=== PATIENT | female | born 1960 | race Caucasian/White ===

== ENCOUNTER 2021-12-08 11:09 | Inpatient (IN) | payer OTHER, SELFPAY ==
[2021-12-08] VITALS (13 sets, daily range): BP systolic 111–183; BP diastolic 59–103; PULSE 70–113; RESP 12–18; TEMP 36.1–37.2; O2SAT 96–99; BMI 54.8; BMI 24.9
--- NOTE | 2021-12-08 | DI.RAD.S_ITS ---
PROCEDURE: XR CHEST FOR PICC 1V INDICATIONS: Picc placement COMPARISON: None. FINDINGS: PICC was placed by the intravenous therapy team from the right side. Fluoroscopic spot film demonstrates the tip of PICC projecting to the area of mid SVC. IMPRESSION: Tip of PICC projects to the area of mid SVC. No pneumothorax. Approved by: Darrion Ambrose M.D. on 12/08/2021 at 16:20
[2021-12-08 14:09] LABS: COVID19 -Nasal RAPID Negative (Negative)
--- NOTE | 2021-12-08 15:45 | SUR.HOLD ---
Right toes exposed. Toes warm with good capillary refill. Pt states tingling at times.
--- NOTE | 2021-12-08 15:46 | SUR.HOLD ---
CHERYLE Carranza her to insert PICC line.
--- NOTE | 2021-12-08 16:07 | PM.PREOP ---
Pre-operative Note COVID-19 COVID-19 status: Negative Result date/Date tested (Pos, Neg/Pending): 12/08/21 Criteria for continued procedure: Expected advancement of disease process, Possibility delay results in more complex future surgery or treatment, Deterioration of the patient's condition or overall health, Delay expected to result in less-positive ultimate med/surg outcome and Non-surgical alternatives not available or appropriate per current SOC Interval Note History & Physical reviewed/Exam performed by Physician: Yes Changes to H&P: No H&P completed within 30 days and has changed as indicated here:: H&P completed today-- pt with infection complicating HW -require I&D and IV antibiotics
--- NOTE | 2021-12-08 16:27 | SUR.OPER ---
Supine on padded OR bed, head on pillow, arms secured on padded arm boards at <90 degrees abduction, legs uncrossed, safety belt at thigh, tape over blanket over lower legs.
[2021-12-08] MEDS: CEFAZOLIN 2 GM/20 ML SYRINGE IV (16:46)
[2021-12-08] MEDS: VANCOMYCIN 1,000 MG VIAL 1000 MG TOP (16:47)
[2021-12-08] MEDS: BUPIVACAINE 0.5% (PF) 30 ML, EPINEPHrine 0.15 MG INJ (16:48)
--- NOTE | 2021-12-08 17:50 | PM.OP.1 ---
Operative Date/Time/Diagnoses Date of procedure: 12/08/21 Time of procedure: 16:15 Pre-op diagnosis: Wound infection right foot with complicating orthopedic hardware T 81.49 XA Post-op diagnosis: same Procedure & Clinicians Procedure: Debridement muscle and fascia initial 20 sq cm CPT code 85073 right modifier 78 Same procedure as scheduled: Yes Indications: Patient is a 61-year-old female that is status post right foot Orthopedic surgery with deformity correction including 1st TMT fusion and 2nd hammertoe correction. Postop course was complicated by epidermolysis, and now presents to clinic today with a full-thickness wound breakdown over the proximal aspect of the 1st tarsometatarsal fusion site and erythema. She also has scant drainage in boggy tissue distally along the incision and at the hammertoe site. No gross purulence but suspected full-thickness tissue loss at the location of the hardware site concerning for deep infection. Patient was indicated for surgical irrigation debridement and admission to the hospital for IV antibiotics. The risks and benefits of the procedure have been discussed with the patient even opportunity to ask questions. The risks of surgery include but are not limited to infection, need for additional procedures, possible need for hardware removal, malunion, nonunion, persistence of pain, damage to nerves and blood vessels, posttraumatic arthritis, DVT, PE, cardiopulmonary complications and . The patient expressed a thorough understanding of the risks and benefits of surgery and has elected to proceed. Consent was signed in the office today. Surgeon: Leticia Byrd Click Yes if Unassisted: Yes Anesthesia Type: General and Local Operative Notes Findings: Full-thickness tissue loss proximally along the medial incision directly under layer fibrinous tissue. This was removed and exposed the proximal plate and screw. No gross purulence but exposed hardware noted. Thick dry skin and eschar was removed. Wound edges were debrided. Deep cultures were sent. Wounds were irrigated and closed primarily over vancomycin powder Closure Type: primary Specimen(s): other (Tissue was sent for culture, aerobic and anaerobic and PCR) Estimated Blood Loss (mL): 15 Blood products transfused: none Tourniquet time (min): 50 Procedure in detail: Patient was seen in the preoperative area the site of surgery was marked informed consent confirmed. She was brought back to the operating room by the anesthesia team positioned supine on operative table. General anesthetic was administered. All bony prominences were well padded. Padded thigh tourniquet was placed. SCD was placed on the contralateral lower extremity. The right lower extremity was prepped and draped in the standard sterile fashion with Betadine over the open area and chlorhexidine up to the thigh. Formal time-out procedure was performed confirming the patient site and side of surgery presence of informed consent. Antibiotics were held for operative cultures and then administered after cultures were taken (2 G Ancef). All were in agreement. The leg was elevated for gravity exsanguination and the tourniquet was raised to 250 mm on the thigh. Attention was turned to the right leg. The medial wound was inspected. There was fibrinous tissue in an area of dehiscence approximately the wound this fibrinous tissue was debrided which expose the proximal aspect of the 1st TMT plate and screw. No gross purulence was found but did medially underneath this fibrinous tissue the hardware was encountered. Remainder of the medial incision was opened and debrided and soft tissue mobilized. This was completed with the sharp scalpel, rongeur and curette. Deep tissue samples were sent for microbiology and PCR. Following cultures the antibiotics were administered. Once the medial wound was debrided attention was turned to the 2nd toe where there was poor healing in the area of the hammertoe sutures was noted that at each edge of the suture a small hole had formed there is no gross purulence here but appeared to be poor tissue healing. These were curetted. Once the wounds were debrided the foot was placed into a basin and 3 L of saline was irrigated through the wounds with cysto tubing. Once this was completed clean drapes were placed in gloves were changed. New Clean instruments were used for the rest of the procedure. Vancomycin powder was placed into the wounds then a few 2-0 PDS sutures were used deep however the patient has had poor quality subcutaneous and deep tissue and the sutures cut through this. Attention was then turned to skin closure this was performed with several initial trauma tension sutures. Then replaced by donatti, and vertical mattress sutures along with several standard simple stitches these were done in 2-0 and 3-0 nylon suture. The wound was able to be approximated without excessive tension. And the initial trauma sutures were removed. The tourniquet was released during closure. Hemostasis was obtained. Skin was cleaned off and a sterile dressing with Xeroform gauze on the wounds 4x4s between the toes and over the wounds Kerlix and an Vimal wrap were placed. All counts were correct. The patient was woken from anesthesia and moved to the hospital bed and taken to the recovery room in good condition. There no immediate complications from this procedure. Complications: none Post-operative Condition: stable Disposition: PACU Plan for aftercare: Plan: Patient will be admitted to the hospital for IV antibiotics for deep infection with complicating hardware. Discharge will be pending cultures anticipate discharge 6 weeks of IV antibiotics with home health for the IV antibiotics. She may be 50% weight-bearing on the right lower extremity. Dressing will stay in place and clean unless saturated then may be changed. Sutures remain in place 4-6 weeks
[2021-12-08] MEDS: OXYCODONE 5 MG/5 ML ORAL SOLUTION PO (17:52)
[2021-12-08] MEDS: LACTATED RINGERS 1,000 ML 100 ML IV (18:41)
[2021-12-08] MEDS: LABETALOL 20 MG/4 ML SYRINGE 10 MG IV (18:41)
[2021-12-08] MEDS: OXYCODONE IR 5 MG TABLET PO ×2 (18:41→21:48)
--- NOTE | 2021-12-08 18:59 | PC.NURSE ---
1530- Patient admitted for an infection in her r.foot. Patient had a bunionectomy and the hardware in her foot was infected per patient. She has a wrap with aniyah wrap to her ankle and wears a boot to that r.leg. Patient denied pain when up to the floor. Patient left for surgery at 1530 and back around 1814. Patients blood pressure up to 180s/103, ordered Lebatolol 1omg ordered and given and patients blood pressure is down to the 150s/80s. Patient also given 5mg of oral oxycodone for complaints of 6/10 pain. She has LR infusing at 100cc/hr and is visiting with her . She has another small wrap to her leg with aniyah on top. CMS wnl and ppx2.
[2021-12-08] MEDS: VANCOMYCIN 1,000 MG/200 ML PIGGYBACK 200 MG IV (20:13)
[2021-12-08] MEDS: ACETAMINOPHEN 325 MG TABLET 975 MG PO (20:13)
[2021-12-08] MEDS: DOCUSATE 100 MG CAPSULE PO (20:14)
[2021-12-08] MEDS: BUSPIRONE 5 MG TABLET PO (20:14)
[2021-12-08 21:16] LABS: Add Manual Diff / Slide Review NO; Basophils Absolute Auto 0 /uL (0-100); Basophils Percent Auto 0.6 % (0-2); Eosinophils Absolute Auto 0 /uL (0-450); Hematocrit 39.1 % (36-46); Hemoglobin 13.4 g/dL (12.0-16.0); Lymphocytes Absolute Auto 800 /uL (1100-4500); Lymphocytes Percent Auto 11.5 % (25-40); Mean Corpuscular HGB Conc 34.2 % (30-36); Mean Corpuscular Hemoglobin 32.8 PG (26-34); Mean Corpuscular Volume 95.9 fL (80-100); Monocytes Absolute Auto 100 /uL (0-900); Monocytes Percent Auto 1.5 % (3-14); Neutrophils Absolute Auto 5600 /uL (1500-7000); Neutrophils Percent Auto 86.4 % (50-75); Platelet Count 216 X10^3/uL (150-400); Red Blood Cell Count 4.08 X10^6/uL (4.0-5.2); White Blood Cell Count 6.5 X10^3/uL (4.5-11.0)
[2021-12-08 21:36] LABS: Erythrocyte Sedimentation Rate 5 MM/HR (0-20)
[2021-12-08 21:51] LABS: Alanine Aminotransferase 22 IU/L (<35); Albumin Globulin Ratio 1.6 (1.0-2.8); Alkaline Phosphatase 73 U/L (38-126); Aspartate Aminotransferase 33 IU/L (14-36); BUN Creatinine Ratio 26.2 (6-22); Bilirubin Total 0.3 mg/dL (0.2-1.3); Blood Urea Nitrogen 16 mg/dL (7-17); C-Reactive Protein Quant < 0.5 mg/dL (<1.0); Calcium 9.4 mg/dL (8.4-10.2); Carbon Dioxide 29 mmol/L (22-32); Chloride 102 mmol/L (98-107); Estimated Glomerular Filt Rate > 60.0 mL/min (>60); Globulin 2.5 g/dL (1.7-4.1); Glucose 143 mg/dL (80-110); HEMOLYSIS < 15 (0-50); Potassium 3.7 mmol/L (3.4-5.1); Sodium 138 mmol/L (137-145); Total Protein 6.5 g/dL (6.3-8.2)
[2021-12-09 04:00] VITALS: BP 124/74; PULSE 82; RESP 16; TEMP 37.2; O2SAT 97
[2021-12-09] MEDS: OXYCODONE IR 5 MG TABLET PO ×3 (04:04→20:42)
[2021-12-09 05:47] LABS: Hematocrit 34.8 % (36-46); Hemoglobin 11.9 g/dL (12.0-16.0); Mean Corpuscular HGB Conc 34.1 % (30-36); Mean Corpuscular Hemoglobin 32.8 PG (26-34); Mean Corpuscular Volume 96.2 fL (80-100); Platelet Count 182 X10^3/uL (150-400); Red Blood Cell Count 3.61 X10^6/uL (4.0-5.2); Red Cell Distribution Width 12.9 % (11.6-14.8); White Blood Cell Count 6.9 X10^3/uL (4.5-11.0)
--- NOTE | 2021-12-09 07:24 | PM.PNPO.1 ---
Subjective Subjective Date Patient Seen: 12/09/21 Time Patient Seen: 07:41 Interval history: Sitting up in bed comfortably, spouse at bedside. No complaints. Pain well-controlled with oral meds. Explained to pt that she will be able to bear some weight on right foot, but she is very hesitant to try at all. Exam Vital Signs (past 8 hours): - 12/08/21 23:30 12/09/21 04:00 Temperature 97.8 F 99 F Pulse Rate 82 82 Respiratory Rate 16 16 Blood Pressure 111/59 L 124/74 Pulse Oximetry 97 97 Oxygen Delivery Method Room Air Oxygen Flow Rate 0 Narrative Exam Narrative: Sensation intact to toes on right. Calves soft, compressible, nontender. Right foot dressing CDI. Objective Labs Result Diagrams: 12/09/21 05:12 12/08/21 21:06 Labs: Laboratory Results - last 24 hr 12/08/21 12/08/21 12/08/21 13:28 21:06 21:06 WBC 6.5 RBC 4.08 Hgb 13.4 Hct 39.1 MCV 95.9 MCH 32.8 MCHC 34.2 RDW 13.0 Plt Count 216 Neut % (Auto) 86.4 H Lymph % (Auto) 11.5 L [place] % (Auto) 1.5 L Eos % (Auto) 0.0 L Baso % (Auto) 0.6 Neut # (Auto) 5600 Lymph # (Auto) 800 L [place] # (Auto) 100 Eos # (Auto) 0 Baso # (Auto) 0 ESR 5 Sodium 138 Potassium 3.7 Chloride 102 Carbon Dioxide 29 BUN 16 Creatinine 0.61 Estimated GFR > 60.0 BUN/Creatinine Ratio 26.2 H Glucose 143 H Calcium 9.4 Total Bilirubin 0.3 AST 33 ALT 22 Alkaline Phosphatase 73 C-Reactive Protein < 0.5 Total Protein 6.5 Albumin 4.0 Globulin 2.5 Albumin/Globulin Ratio 1.6 SARS-CoV-2 (PCR) Negative 12/09/21 05:12 WBC 6.9 RBC 3.61 L Hgb 11.9 L Hct 34.8 L MCV 96.2 MCH 32.8 MCHC 34.1 RDW 12.9 Plt Count 182 Neut % (Auto) Lymph % (Auto) [place] % (Auto) Eos % (Auto) Baso % (Auto) Neut # (Auto) Lymph # (Auto) [place] # (Auto) Eos # (Auto) Baso # (Auto) ESR Sodium Potassium Chloride Carbon Dioxide BUN Creatinine Estimated GFR BUN/Creatinine Ratio Glucose Calcium Total Bilirubin AST ALT Alkaline Phosphatase C-Reactive Protein Total Protein Albumin Globulin Albumin/Globulin Ratio SARS-CoV-2 (PCR) [facility] Medical History (Updated 12/09/21 @ 07:25 by Makenzie Robbins PA-C) Anxiety HTN (hypertension) Social History household members: significant other Smoking Status: Former smoker alcohol intake: current Assessment & Plan Post-op Assessment and plan (1) Wound infection complicating hardware: Assessment and Plan narrative: Discharge will be pending cultures anticipate discharge 6 weeks of IV antibiotics with home health for the IV antibiotics.? She may be 50% weight-bearing on the right lower extremity.? Dressing will stay in place and clean unless saturated then may be changed.? Sutures remain in place 4-6 weeks. Postoperative Procedures: Procedures Operation Date: 12/08/21 16:00 Actual Procedure Side Surgeon p I&D foot Right Leticia Byrd MD Postoperative day: 1 Postoperative plan narrative: Continue PT, pain control. Quality VTE Deep Vein Thrombosis/Pulmonary Embolism Present on Admission: No
[2021-12-09 07:25] VITALS: BP 122/74; PULSE 68; RESP 16; TEMP 37.3; O2SAT 96
[2021-12-09] MEDS: BUSPIRONE 5 MG TABLET PO ×2 (08:15→20:42)
[2021-12-09] MEDS: OXYCODONE IR 10 MG TABLET PO ×2 (08:15→13:12)
[2021-12-09] MEDS: ACETAMINOPHEN 325 MG TABLET 975 MG PO ×3 (08:15→20:42)
[2021-12-09] MEDS: DOCUSATE 100 MG CAPSULE PO ×2 (08:15→20:42)
[2021-12-09] MEDS: TRIAMTERENE/HCTZ 37.5/25 CAPSULE 2 CAP PO (08:16)
[2021-12-09] MEDS: ASPIRIN 325 MG TABLET PO (08:16)
[2021-12-09] MEDS: VANCOMYCIN 1,000 MG/200 ML PIGGYBACK 200 MG IV ×2 (08:16→20:41)
[2021-12-09 10:30] VITALS: O2SAT 97
--- NOTE | 2021-12-09 10:45 | PT.IIE ---
Current Diagnoses Infection following a procedure, other surgical site, initial encounter (12/08/21) Infection and inflammatory reaction due to other internal orthopedic prosthetic devices, implants and grafts, initial encounter (12/08/21) Surgery Performed Operation Date: 12/08/21 16:00 Actual Procedures p I&D foot(Right) - Leticia Byrd MD Medical History (Last Updated 12/08/21 @ 15:41 by Cecily Juarez RN) Anxiety HTN (hypertension) Physical Therapy Inpatient Evaluation/Re-Eval M1 PT/OT-IP Prior Functional Status Start: 12/09/21 13:04 Freq: NEEDED Status: Active Protocol: Document 12/09/21 10:45 AB (Rec: 12/09/21 13:24 AB [id number]) Medical Review Prior Functional Status Medical History Reviewed Yes Communication able to make needs known Mobility and Gait pt stated that she is indpeendent with all mobilities and ambulation without AD but had R foot sx last Nov 09, 2021 and has been NWB on RLE. Stated that she has been using a manual w/c for mobility and has not been ambulatory, able to transfer by herself stand/squat pivot without AD to and from her w/c . Social History Household Members significant other Living Arrangements House Number of Floors (Floors) Two Floors Number of Stairs To Enter/Railing? 2 step platform; pt's SO pushes pt into the house in her w/c pt stays on main level of the house Home Environment Standard Height Toilet Home Equipment Manual Wheelchair,Shower Seat with Backrest,Grab Bars Near Toilet M2 PT-IP Current Condition Start: 12/09/21 13:04 Freq: NEEDED Status: Active Protocol: Document 12/09/21 10:45 AB (Rec: 12/09/21 13:24 AB [id number]) Physical Therapy Current Condition Current Condition Evaluation Date 12/09/21 Treatment Diagnosis R foot infxn s/p I&D; difficulty in walking Onset Date 12/08/21 M3 PT-IP Subjective Start: 12/09/21 13:04 Freq: NEEDED Status: Active Protocol: Document 12/09/21 10:45 AB (Rec: 12/09/21 13:24 AB [email or web address]) Subjective Physical Therapy Visit Type Type Initial Evaluation Visit Start Time 10:45 Visit Stop Time 11:35 Total Visit Minutes 50 Number of BUSINESS TEAM LEADER Visits 0 Physical Therapy Visit Comments Patient Comments agreeable to do PT pt hesistant on putting weight on RLE Therapy Pain Assessment Pain Present Pain Present Denied Pain M4 PT-IP Mobility and Gait Start: 12/09/21 13:04 Freq: NEEDED Status: Active Protocol: Document 12/09/21 10:45 AB (Rec: 12/09/21 13:24 AB [email or web address]) PT-Bed Mobility Assessment Supine to Sit Supine to Sit Standby Assistance Sit to Supine Sit to Supine Standby Assistance PT-Transfer Assessment Sit to and From Stand Sit to and from Stand Standby Assistance Equipment Transfer Assistive Device None,Gait Belt Orthotic/Prosthetic Devices or Brace: Yes Transfers Transfer Destination Wheelchair Transfer Technique Stand Step Pivot Transfer Ability Level of Assist Standby Assistance,Contact Guard Assistance,1 Person Assistance,Use of Upper Extremities Comments Mobility Comments pt agreed to do PT and SO also in room. educated pt on weight bearing precaution and use of FWW. pt is hesitant about putting weight on RLE. educated pt on gradually increasing weight bearing to MD's weight bearing restrictions to prevent further deconditioning. Pt and SO understood. pt completed supine to sit SBA . demonstrated stand pivot transfer without AD bed<>w/c SBA. pt maintained NWB on RLE . pt then agreed to stand using FWW and completed sit to stand SBA to CGA. pt maintained standing using FWW for support CGA. attempted to put some weight on R foot and attempted to take a few steps using FWW and completed 1 step forward and then back mod A. pt requested to lay back in bed and completed sit to supine SBA. positioned pt in bed. call light and table placed within reach. pt also provided with post-op shoe per Dr. Sanchez's order for RLE. pt signed papers for post-op shoe. Gait Assessment Gait Gait Assistance Required: Moderate Assistance Comments Gait Comments pls refer to mobility section for details PT-Balance Assessment Sitting Balance and Reactions Static Sitting Balance Ability Normal Dynamic Sitting Balance Ability Good Standing Balance and Reactions Static Standing Balance Ability Fair Dynamic Standing Balance Ability Fair Device Used FWW M5 PT-IP Objective Assessments Start: 12/09/21 13:04 Freq: NEEDED Status: Active Protocol: Document 12/09/21 10:45 AB (Rec: 12/09/21 13:24 AB [email or web address]) Orientation Orientation/Cognition Level of Alertness Alert Orientation Name,Age,Birthday,Month,Date, Year,Day of Week,Place, Situation Language Function Ability No Deficits Noted Safety Awareness Understands Safety Issues Memory Description No Deficits Noted Gross Range of Motion Lower Extremity ROM Assessment Within Functional Limits Strength Lower Extremity Strength Assessment Within Functional Limits Coordination Assessment Gross Coordination Gross Coordination WNL Muscle Tone Muscle Tone WNL Yes M6 PT-IP Treatment Start: 12/09/21 13:04 Freq: NEEDED Status: Active Protocol: Document 12/09/21 10:45 AB (Rec: 12/09/21 13:24 AB [email or web address]) Physical Therapy Treatment Education Education Provided Weight Bearing Status,Safety Equipment Issued Equipment Type and Company post-op shoe dispensed to pt: [employer], pt signed paper M7 PT-IP Assessment and Plan Start: 12/09/21 13:04 Freq: NEEDED Status: Active Protocol: Document 12/09/21 10:45 AB (Rec: 12/09/21 13:24 AB [email or web address]) PT Summary Assessment and Plan Potential Rehabilitation Potential Good Status of Condition at Evaluation Stable Summary Impairments Pain,ROM,Strength,Balance, Coordination,Sensation,Tone, Cognition,Bed Mobility, Transfers,Gait,Activity Tolerance Assessment Summary pt able to completed bed mobility and transfer SBA. pt has been using a w/c at home for mobility and her significant other assists her as needed. pt is not comfortable putting weight on RLE and will require HHPT to improve mobility and prevent further deconditioning. Goals Bed Mobility Goal Independent Transfer Goal Independent Gait Goal Standby Assistance,Front Wheel Walker Gait Distance 50 Other Goals up/down 1 step using FWW min A Days to Meet Goals 5 Frequency of Treatment Frequency Of Treatment Once a Day Treatment Plan Physical Therapy Treatment Plan Bed Mobility Training,Transfer Training,Gait Training, Therapeutic Exercise,Balance Retraining,Post Op Education, Discharge Planning,Hot or Cold Pack,Neuromuscular Re-ed, Coordination Retraining,Manual Therapy Weight Bearing Status Weight Bearing Status Partial Weight Bearing Allowed Weight Bearing Amount (enter % RLE 50% weight bearing or #) (%) Recommendations To Nursing Amount of Assist Needed 1 Person Assist Discharge Recommendations PT Discharge Recommendations Home with Assistance,Home Health Transportation Needs at Discharge Private Vehicle
[2021-12-09] MEDS: polyethylene glycoL 3350 17 GM POWD.PACK PO (11:44)
--- NOTE | 2021-12-09 13:23 | CM.DANOTE ---
DCP Assessment: patient is a61 yr old female who was admitted for infected Rt foot that needed Surgical I&D preformed by Dr Byrd. According to Dr. Byrd patient will most likely need 6 weeks of IV abx pending wound culture results. CM met with patient at the bedside along with her Significant other Hanna. CM explained role. Patient was A&O x4 at time of CM visit. CM explained that there might be a need for up to 6 weeks of IV abx if the organism that is growing needs IV medication to treat. Patient stated understanding. CM asked about DC plan for when the patient DC from the hospital. Patient would like to go home to monday with [place] at [place]. CM explained [place] HH agency [place] [facility] and CM will send clinicals for them to review to see if they will accept. patient stated understanding. CM also explained that depending on how many doses a day of IV abx the patient will need Home infusions may not be an option. CM then asked if the patient would be open to SNF. Patient was hesitant but stated if she had to she would but would prefer going home with and home infusions. CM LVM with [facility] to see if they still go to Monday and if CM will work on finding out if there is another infusion company that services monday. CM gave the patient and her S/O hanna a list of SNF facilities so they can review it. CM will get preferred choice for SNF on Monday so CM can start working on a regence auth if they want or need to go to a SNF. CM asked LAWRENCE dickson to faxe [facility] records for the patient for them to review for possible HH admission. KAYCE also called Bruce with [facility] and discussed this patient Bruce stated he will keep his eyes out for the referral. I: Regence and self pay Plan: DC home with and an infusion company to do 6wk of IV abx or SNF depending on service availablity in Monday and number of daily infusions that will be needed. CM will continue to follow to get DC plan all set up prior to Patients DC. Chana Weinstein RNmanager studio Discharge Planning/Care Management CM Discharge Assessment Start: 12/09/21 13:19 Freq: Status: Active Protocol: Document 12/09/21 13:19 HS (Rec: 12/09/21 13:22 HS [id number]) Discharge Planning Assessment Assigned Oral Hygienist Hanna Gamez (life partner) DPOA/Assigned Designee Name [phone] Advance Directives? No: Uknown History Provided By Patient,Significant Other, Medical Record Has Patient been admitted in last 30 No days? Prior Living Arrangements House Household Members significant other Type of transporation used prior to Relies on Others admit Comment Significant other has been driving her since her foot problems Independent with ADL's Yes Is patient alert and oriented? Yes Needs Assistance With Meal Prep,Home Chores / Shopping Caregiver for Another No Patient/Family Preference Shelter Facility,Home with Home Health Comment SNF VS HH with [facility] if IV ABX are needed Barriers to Discharge Yes Comment IV abx and DC plan on home vs SNF also if SNF regence auth Discharge Plan Home with Home Health Community Services Physical Therapy,Occupational Therapy,Home Health Aid,Home Health Nurse,IV Therapy,Wound Care Transportation Arrangement patients significant other will provide transport home Referrals Initiated Shelter,Home Health Additional Comment to be determined on amount of IV therapy that is needed Medicare Choice List Provided Yes SNF/HH Preference [facility] send clinicals since this is the patients first choice Contact Name/Phone Bruce at [facility] [phone] Has Agency SNF been contacted No Whiteboard Updated in Patient Room with Yes name and ext. # of Oral Hygienist Review Status In Process Next Review Type Continued Stay Review
[2021-12-09 18:30] VITALS: BP 112/70; PULSE 71; RESP 16; O2SAT 97
[2021-12-09 19:25] VITALS: BP 135/75; PULSE 69; RESP 17; TEMP 36.8; O2SAT 97
[2021-12-10] MEDS: OXYCODONE IR 5 MG TABLET PO (03:07)
[2021-12-10 03:14] VITALS: BP 133/82; PULSE 80; RESP 17; TEMP 37.1; O2SAT 95
[2021-12-10 08:00] VITALS: BP 123/74; PULSE 65; RESP 16; TEMP 36.9; O2SAT 97
[2021-12-10 08:17] VITALS: O2SAT 94
[2021-12-10] MEDS: VANCOMYCIN 1,000 MG/200 ML PIGGYBACK 200 MG IV ×2 (08:39→16:37)
[2021-12-10] MEDS: TRIAMTERENE/HCTZ 37.5/25 CAPSULE 2 CAP PO (08:39)
[2021-12-10] MEDS: ASPIRIN 325 MG TABLET PO (08:40)
[2021-12-10] MEDS: ACETAMINOPHEN 325 MG TABLET 975 MG PO ×3 (08:40→22:40)
[2021-12-10] MEDS: BUSPIRONE 5 MG TABLET PO ×2 (08:40→22:41)
[2021-12-10] MEDS: DOCUSATE 100 MG CAPSULE PO ×2 (08:41→22:41)
[2021-12-10] MEDS: VANCOMYCIN TROUGH 1 REQUEST MISC (08:41)
[2021-12-10] MEDS: polyethylene glycoL 3350 17 GM POWD.PACK PO (08:42)
[2021-12-10 09:11] LABS: Vancomycin Trough 9.2 ug/mL (10-20)
--- NOTE | 2021-12-10 10:00 | PT.IPTN ---
Current Diagnoses Infection following a procedure, other surgical site, initial encounter (12/08/21) Infection and inflammatory reaction due to other internal orthopedic prosthetic devices, implants and grafts, initial encounter (12/08/21) Surgery Performed Operation Date: 12/08/21 16:00 Actual Procedures p I&D foot(Right) - Leticia Byrd MD Physical Therapy Treatment Note M2 PT-IP Current Condition Start: 12/09/21 13:04 Freq: NEEDED Status: Active Protocol: Document 12/09/21 10:45 AB (Rec: 12/09/21 13:24 AB [id number]) Physical Therapy Current Condition Current Condition Evaluation Date 12/09/21 Treatment Diagnosis R foot infxn s/p I&D; difficulty in walking Onset Date 12/08/21 M3 PT-IP Subjective Start: 12/09/21 13:04 Freq: NEEDED Status: Active Protocol: Document 12/10/21 10:00 AB (Rec: 12/10/21 11:30 AB [email or web address]) Subjective Physical Therapy Visit Type Type Treatment Note Visit Start Time 10:00 Visit Stop Time 10:36 Total Visit Minutes 36 Number of HEAD TELLER Visits 0 Physical Therapy Visit Comments Patient Comments requested to use the toilet M4 PT-IP Mobility and Gait Start: 12/09/21 13:04 Freq: NEEDED Status: Active Protocol: Document 12/10/21 10:00 AB (Rec: 12/10/21 11:30 AB [email or web address]) PT-Bed Mobility Assessment Supine to Sit Supine to Sit Standby Assistance Sit to Supine Sit to Supine Standby Assistance Scooting Scooting to Edge of Bed Standby Assistance PT-Transfer Assessment Sit to and From Stand Sit to and from Stand Contact Guard Assistance,1 Person Assistance,Use of Upper Extremities Equipment Transfer Assistive Device Gait Belt,Front Wheeled Walker Orthotic/Prosthetic Devices or Brace: Yes Transfers Transfer Destination Bedside Commode Transfer Technique Stand Step Pivot Transfer Ability Level of Assist Contact Guard Assistance,1 Person Assistance,Use of Upper Extremities Comments Mobility Comments pt completed bed mobility SBA. agreed to use FWW for transfer and to put some weight on LLE although pt continues to be hesitant and guarded. completed sit to stand CGA and completed step transfer to bedside commode using FWW CGA. completed toileting needs SBA. completed sit to stand CGA and transfer back to EOB using FWW CGA. Pt with achilles tendon tightness presents to have increase PF in standing/foot drop. Pt educated on importance of putting some weight on RLE within ortho doctor's direction and complications when pt is not using RLE for mobility ( contractures, weakness and some weight bearing that will benefit healing ) instructed pt with position on R foot with heel down during sitting position to prevent further foot drop. pt attempted as tolerate and only tolerated a few seconds and was not able to get ankle on neutral position with ~ 20 deg less to neutral. completed sit to stand again and instructed to have heel down a little and pt attempted . ambulated ~ 12 ft using FWW CGA and cues and continues to be guarded. pt lay back in bed. sit to supine SBA. positioned pt in bed. positioned pillow for LE elevation and also on bottom of feet to prevent further PF. instructed pt to do ankle pumps. call light and table placed within reach. Gait Assessment Gait Gait Assistance Required: Contact Guard Assist Distance (Feet) 12 Able to Maintain Weight Bearing Status Yes During Gait Assistive Devices Assistive Device Gait Belt,Front Wheeled Walker Orthotic/Prosthetic Devices or Brace: No Factors Limiting Gait Function Factors Limiting Gait Function Decreased Activity Tolerance, Decreased Strength,Pain,Poor Balance M5 PT-IP Objective Assessments Start: 12/09/21 13:04 Freq: NEEDED Status: Active Protocol: Document 12/09/21 10:45 AB (Rec: 12/09/21 13:24 AB [email or web address]) Orientation Orientation/Cognition Level of Alertness Alert Orientation Name,Age,Birthday,Month,Date, Year,Day of Week,Place, Situation Language Function Ability No Deficits Noted Safety Awareness Understands Safety Issues Memory Description No Deficits Noted Gross Range of Motion Lower Extremity ROM Assessment Within Functional Limits Strength Lower Extremity Strength Assessment Within Functional Limits Coordination Assessment Gross Coordination Gross Coordination WNL Muscle Tone Muscle Tone WNL Yes M6 PT-IP Treatment Start: 12/09/21 13:04 Freq: NEEDED Status: Active Protocol: Document 12/10/21 10:00 AB (Rec: 12/10/21 11:30 AB [email or web address]) Physical Therapy Treatment Education Education Provided Precautions,Weight Bearing Status,Safety M7 PT-IP Assessment and Plan Start: 12/09/21 13:04 Freq: NEEDED Status: Active Protocol: Document 12/10/21 10:00 AB (Rec: 12/10/21 11:30 AB [id number]) PT Summary Assessment and Plan Potential Rehabilitation Potential Good Summary Impairments Pain,ROM,Strength,Balance, Coordination,Sensation,Tone, Cognition,Bed Mobility, Transfers,Gait,Activity Tolerance Progress Towards Goals Slow Progress due to Activity Tolerance,Slow Progress - Other Assessment Summary pt with 50% weight bearing on RLE but pt is hesitant on putting weight tends to have R foot in PF. Pt with tight R heel cord and weakness of DF presents to have foot drop due to positioning and non-use. pt educated on importance of using RLE within doctor's guidelines vs not using RLE at all. Pt understood and is more willing to use RLE but still continues to be very guarded. pt will need HHPT to improve mobility and prevent further RLE deconditioning. Goals Bed Mobility Goal Independent Transfer Goal Independent Gait Goal Standby Assistance,Front Wheel Walker Gait Distance 50 Other Goals up/down 1 step using FWW min A Days to Meet Goals 5 Frequency of Treatment Frequency Of Treatment Once a Day Treatment Plan Physical Therapy Treatment Plan Bed Mobility Training,Transfer Training,Gait Training, Therapeutic Exercise,Balance Retraining,Post Op Education, Discharge Planning,Hot or Cold Pack,Neuromuscular Re-ed, Coordination Retraining,Manual Therapy Weight Bearing Status Weight Bearing Status Partial Weight Bearing Allowed Weight Bearing Amount (enter % RLE 50% weight bearing or #) (%) Recommendations To Nursing Amount of Assist Needed 1 Person Assist Discharge Recommendations PT Discharge Recommendations Home with Assistance,Home Health Transportation Needs at Discharge Private Vehicle
[2021-12-10 11:28] LABS: Vancomycin Peak 23.9 ug/mL (20-40)
[2021-12-10 14:00] VITALS: BP 131/80; PULSE 74; RESP 16; TEMP 37.1; O2SAT 97
--- NOTE | 2021-12-10 14:21 | P.PN_ITS ---
Subjective Subjective Date Patient Seen: 12/10/21 Time Patient Seen: 14:21 Interval history: Sitting up in bed, comfortable, no complaints. Exam Vital Signs (past 8 hours): - 12/10/21 08:00 12/10/21 08:17 Temperature 98.4 F Pulse Rate 65 Respiratory Rate 16 Blood Pressure 123/74 Pulse Oximetry 97 94 Oxygen Delivery Method Room Air Oxygen Flow Rate 0 Narrative Exam Narrative: Prelim aerobic, no growth. Anaerobic pending. Called [facility] re PCR results, they stated they do not yet have specimen. ROM intact in RLE ankle, knee. Wiggles toes without difficulty. Good capillary refill, sensation to touch intact. Dressing CDI. Const General: cooperative, healthy appearing and comfortable Orientation: alert, awake and oriented x3 Objective Labs Result Diagrams: 12/09/21 05:12 12/08/21 21:06 Labs: Laboratory Results - last 24 hr 12/10/21 12/10/21 08:20 10:50 Vancomycin Peak 23.9 Vancomycin Trough 9.2 L [facility] Medical History (Updated 12/09/21 @ 07:25 by Makenzie Robbins PA-C) Anxiety HTN (hypertension) Social History household members: significant other Smoking Status: Former smoker alcohol intake: current Assessment & Plan Post-op Postoperative Procedures: Procedures Operation Date: 12/08/21 16:00 Actual Procedure Side Surgeon p I&D foot Right Leticia Byrd MD Postoperative day: 2 Postoperative plan narrative: Patient to remain partial weight bearing to 50% on right. Continue work with PT. Continue IV vancomycin until final cultures and PCR return. Anticipate need for 6 weeks of IV antibiotics; likely rocephin qd if MRSA negative, or vancomycin BID if MRSA positive. Sutures to remain in for 4-6 weeks. Quality VTE Deep Vein Thrombosis/Pulmonary Embolism Present on Admission: No
--- NOTE | 2021-12-10 15:04 | CM.DPC ---
Addendum entered by Chana Weinstein R.N. 12/10/21 17:00: CM faxed [facility] for there review and finished F2F for patient if they go home with HH and [facility] at [place]. patient needs to be updated about [facility] - they do service the [facility] however usually this is done by the patient coming to [place] at first learning how to self infuse and then going to the local hospital to get bandage changes and labs. Then [facility] flies in there medications weekly. Chana Weinstein RNrestaurant kitchen and service manager Original Note: DCP Continued: CM talked with patient about 6 weeks of IV abx and patient agreed to do either SNF or Home Health with [facility] if the infusions were only 1 or maybe 2 times a day but if the patient needs more infusions than that SNF would be preferred. KAYCE called [facility] who will review for possible admission but needs to run her insurance to see if they are in network for the patient. KAYCE also called [facility] and [facility] and lVM for them to review patient for possible admission. LAWRENCE Fisher Faxed Clinicals for their review. KAYCE spoke with Juanita at [facility] and they have SNF bed available on Monday and Monday so LAWRENCE Fisher Sent clinicals for her to review as well. PASRR Completed. KAYCE called [facility] and spoke with Giorgio at [phone] who stated they do service the [facility] however usually this is done by the patient coming to [place] at first learning how to self infuse and then going to the [facility] to get bandage changes and labs. Then [facility] flies in there medications weekly. Patient needs to be updated with this information Cm was not able to meet with them this afternoon prior to leaving for the day. [facility] called back - Merle she cannot accept the patient for admission at this time they have no bed availability until maybe Monday or Monday. I: franky PPO and self pay Plan: DC to SNF VS home with HH and [facility] for 6 week of IV abx. KAYCE is working both plans to establish the best DC plan for the patient when Wound cultures return and antibiotic is determined. Chana Weinstein RNtitle investigator
--- NOTE | 2021-12-10 15:24 | CM.DPNOTE ---
[facility]ax[facility], Ayesha fischer and franky HERNANDEZ. Natalia Del Real CM Assst.
--- NOTE | 2021-12-10 16:02 | PC.NURSE ---
Patient has a dressing to her r.ankle that is snug but not to tight, ppx2. She is able to bear 50% weight on foot. She is using the bsc and and voiding well. Patient had a trough and peak drawn to see vancomycin levels. She has been tolerating the antibiotic well. Visiting with and patient has not needed oxycodone for discomfort and has been having adequate pain control with tylenol.
[2021-12-10 20:00] VITALS: BP 117/68; PULSE 74; RESP 16; TEMP 37.1; O2SAT 97
[2021-12-11] MEDS: VANCOMYCIN 1,000 MG/200 ML PIGGYBACK 200 MG IV ×3 (00:20→17:18)
[2021-12-11 04:00] VITALS: BP 126/77; PULSE 57; RESP 18; TEMP 36.8; O2SAT 98
[2021-12-11 05:41] LABS: Estimated Glomerular Filt Rate > 60.0 mL/min (>60)
[2021-12-11] MEDS: ASPIRIN 325 MG TABLET PO (07:40)
[2021-12-11] MEDS: polyethylene glycoL 3350 17 GM POWD.PACK PO (07:40)
[2021-12-11] MEDS: DOCUSATE 100 MG CAPSULE PO ×2 (07:40→21:18)
[2021-12-11] MEDS: BUSPIRONE 5 MG TABLET PO ×2 (07:40→21:18)
[2021-12-11] MEDS: ACETAMINOPHEN 325 MG TABLET 975 MG PO ×3 (07:40→21:18)
[2021-12-11] MEDS: TRIAMTERENE/HCTZ 37.5/25 CAPSULE 2 CAP PO (07:40)
[2021-12-11] MEDS: VANCOMYCIN TROUGH 1 REQUEST MISC (07:49)
[2021-12-11] MEDS: SODIUM CHLORIDE 0.9% FLUSH 10 ML IV ×4 (07:49→21:18)
[2021-12-11 07:50] VITALS: BP 138/69; PULSE 66; RESP 19; TEMP 37; O2SAT 98
--- NOTE | 2021-12-11 09:50 | P.DS_ITS ---
History of Present Illness History of Present Illness Date Patient Seen: 12/11/21 Time Patient Seen: 09:50 Chief complaint: Irrigation/Debridment of Infected rt foot Narrative: Operative Date/Time/Diagnoses Date of procedure: 12/08/21 Time of procedure: 16:15 Pre-op diagnosis: Wound infection right foot with complicating orthopedic hardware T 81.49 XA Post-op diagnosis: same Procedure & Clinicians Procedure: Debridement muscle and fascia initial 20 sq cm CPT code 78789 right modifier 78 Same procedure as scheduled: Yes Indications: Patient is a 61-year-old female that is status post right foot Orthopedic surgery with deformity correction including 1st TMT fusion and 2nd hammertoe correction.? Postop? course was complicated by epidermolysis, and now presents to clinic today with a full-thickness wound breakdown over the proximal aspect of the 1st tarsometatarsal fusion site and erythema.? She also has scant draina ge in boggy tissue distally along the incision and at the hammertoe site.? No gross purulence but suspected full-thickness tissue loss at the location of the hardware site concerning for deep infection.? Patient was indicated for surgical irrigation debridement and admission to the hospital for IV antibiotics.? The risks and benefits of the procedure have been discussed with the patient even opportunity to ask questions.? The risks of surgery include but are not limited to infection, need for additional procedures, possible need for hardware removal, malunion, nonunion, persistence of pain, damage to nerves and blood vessels, posttraumatic arthritis, DVT, PE, cardiopulmonary complications and .? The patient expressed a thorough understanding of the risks and benefits of surgery and has elected to proceed.? Consent was signed in the office today. Surgeon: Leticia Byrd Click Yes if Unassisted: Yes Anesthesia Type: General and Local Operative Notes Findings: Full-thickness tissue loss proximally along the medial incision directly under layer fibrinous tissue.? This was removed and exposed the proximal plate and screw.? No gross purulence but exposed hardware noted.? Thick dry skin and eschar was removed.? Wound edges were debrided.? Deep cultures were sent.? Wounds were irrigated and closed primarily over vancomycin powder Closure Type: primary Specimen(s): other (Tissue was sent for culture, aerobic and anaerobic and PCR) Estimated Blood Loss (mL): 15 Blood products transfused: none Tourniquet time (min): 50 Discharge Providers Provider Date of admission: 12/08/21 11:09 Discharge Date: 12/11/21 Consults: 12/08/21 18:14 Consult to Discharge Planning Routine Comment: Consult to Physical Therapy Evaluate & Treat Comment: 50% weight-bearing on right lower extremity Physician Instructions: Evaluate and Treat Consult to Respiratory Therapy Evaluate & Treat Comment: Physician Instructions: Evaluate and treat Discharge provider: Makenzie Robbins PA-C Summary Hospital Course Discharge Diagnosis: Infected R foot Hospital Course: Natalia's hospital course was unremarkable. She made good progress with physical therapy. She had no trouble eating or voiding. She remained on IV vancomycin pending final cultures and PCR. Status at Discharge Cognitive/behavioral status at discharge: oriented Functional status at discharge: uses cane/walker Exam Vital Signs (past 8 hours): - 12/11/21 04:00 12/11/21 07:50 Temperature 98.2 F 98.6 F Pulse Rate 57 L 66 Respiratory Rate 18 19 Blood Pressure 126/77 138/69 Pulse Oximetry 98 98 Oxygen Delivery Method Room Air Oxygen Flow Rate 0 Narrative Exam Narrative: On day of discharge, preliminary anaerobic and aerobic cultures showed no growth.? Called re PCR results, and they had just started processing the specimen.? ROM intact in RLE ankle, knee.? Wiggles toes without difficulty.? Goo d capillary refill, sensation to touch intact.? Dressing CDI. Const General: cooperative, healthy appearing and comfortable Orientation: alert, awake and oriented x3 Objective Labs Result Diagrams: 12/09/21 05:12 12/11/21 05:02 Labs: Laboratory Results - last 24 hr 12/10/21 12/11/21 12/11/21 10:50 05:02 07:50 Creatinine 0.55 Estimated GFR > 60.0 Vancomycin Peak 23.9 Vancomycin Trough 15.0 [facility] Medical History (Updated 12/09/21 @ 07:25 by Makenzie Robbins PA-C) Anxiety HTN (hypertension) Social History household members: significant other Smoking Status: Former smoker alcohol intake: current Discharge Assessment & Plan Assessment and Plan Assessment: POD# 3 s/p I&D of right foot. Case discussed with Dr Byrd's colleague, who recommended discharge with IV vancomycin until final cultures are returned and MRSA infection is ruled in or out. Plan of Treatment: 1) Discharge with home health and IV vancomycin BID. 2) Our office will call lab [phone] and follow up with on 12/13/2021 for final cultures and will make antibiotic change as appropriate. Anticipate discharge 6 weeks of IV antibiotics with home health for the IV antibiotics.? 3) Continue 50% weight-bearing on the right lower extremity.? Dressing will stay in place and clean unless saturated then may be changed.? Sutures remain in place 4-6 weeks Discharge Plan Discharge Plan Patient Disposition: Home Health Service Transfer to: Home Health, Other and [facility] Discharge orders & Medications Prescriptions: New acetaminophen 325 mg Tablet 975 mg PO TID Qty: 90 0RF oxycodone 5 mg Tablet 5 mg PO Q6H PRN (Reason: pain, severe) Qty: 10 0RF vancomycin-water inject (PEG) 1 gram/200 mL Piggyback 1,000 mg IV Q12H Qty: 2400 0RF Continued buspirone 5 mg tablet 5 mg PO BID 0RF Label Comments: TAKE ONE TABLET BY MOUTH EVERY MORNING AND TWO TABLETS EVERY EVENING aspirin [Marco Aspirin] 325 mg Tablet 325 mg PO DAILY 0RF triamterene-hydrochlorothiazid 75-50 mg tablet See Rx Instructions .ROUTE .COMPLEX 0RF Rx Instructions: take one 75-50mg tablets by mouth once daily in the morning. polyethylene glycol 3350 17 gram/dose powder 17 g PO QAM PRN (Reason: Constipation) 0RF Label Comments: Mix 17 gRAMS OF powder with EIGHT OUNCES of liquid before drinking. Take twice daily until soft bowel movements, then ONCE daily NEEDED. Follow up/Referrals: Shyanne Bingham PA-C [Non-Staff] - Leticia Byrd MD [Physician] - (Follow up with Dr Byrd on 12/22/2021 @ 2:00 pm in [employer] office.) Cinthia Olvera MD [Physician] - Diet/Activity/Treatments Diet: Diet as Tolerated Activity: 50% weight bearing on right leg. Keep dressing clean and dry. Visit Report/Discharge Packet Instructions: DI for Prescription Opioid Use, DI for Incision and Drainage of a Joint, DI for Incision and Drainage, [facility]: Wound Care Stand Alone Forms: Surgery Discharge Quality VTE Deep Vein Thrombosis/Pulmonary Embolism Present on Admission: No
--- NOTE | 2021-12-11 10:16 | PT.IPTN ---
Current Diagnoses Infection following a procedure, other surgical site, initial encounter (12/08/21) Infection and inflammatory reaction due to other internal orthopedic prosthetic devices, implants and grafts, initial encounter (12/08/21) Surgery Performed Operation Date: 12/08/21 16:00 Actual Procedures p I&D foot(Right) - Leticia Byrd MD Physical Therapy Treatment Note M2 PT-IP Current Condition Start: 12/09/21 13:04 Freq: NEEDED Status: Active Protocol: Document 12/09/21 10:45 AB (Rec: 12/09/21 13:24 AB [id number]) Physical Therapy Current Condition Current Condition Evaluation Date 12/09/21 Treatment Diagnosis R foot infxn s/p I&D; difficulty in walking Onset Date 12/08/21 M3 PT-IP Subjective Start: 12/09/21 13:04 Freq: NEEDED Status: Active Protocol: Document 12/11/21 09:29 KS (Rec: 12/11/21 11:22 KS [id number]) Subjective Physical Therapy Visit Type Type Treatment Note Visit Start Time 09:29 Visit Stop Time 10:16 Total Visit Minutes 47 Notes Pts spouse present during treatment. Number of CLOTH SHADER Visits 1 Physical Therapy Visit Comments Patient Comments requested to use the toilet M4 PT-IP Mobility and Gait Start: 12/09/21 13:04 Freq: NEEDED Status: Active Protocol: Document 12/11/21 09:29 KS (Rec: 12/11/21 11:22 KS [id number]) PT-Bed Mobility Assessment Supine to Sit Supine to Sit Standby Assistance Sit to Supine Sit to Supine Standby Assistance Scooting Scooting to Edge of Bed Standby Assistance PT-Transfer Assessment Sit to and From Stand Sit to and from Stand Contact Guard Assistance,1 Person Assistance,Use of Upper Extremities Equipment Transfer Assistive Device Gait Belt,Front Wheeled Walker Orthotic/Prosthetic Devices or Brace: Yes Transfers Transfer Destination Bed,Toilet Transfer Technique Pt ambulated w/ FWW Transfer Ability Level of Assist Contact Guard Assistance,1 Person Assistance,Use of Upper Extremities Comments Mobility Comments Pt in bed upon arrival from therapy w/ in room and requesting to use toilet. SBA for sup<>sit and scooting EOB . Pt then sit<>stand w/ FWW CGA and ambulated ~15 ft to toilet CGA w/ cues. After bowel movement, pt ambulated to sink and was able to maintain standing balance while hand washing. She then ambulated additional 10 ft back to bed CGA. Pt toelrated 50% weight through RLE better w/ less pain today. Gait Assessment Gait Gait Assistance Required: Contact Guard Assist Distance (Feet) 35 Able to Maintain Weight Bearing Status Yes During Gait Assistive Devices Assistive Device Gait Belt,Front Wheeled Walker Orthotic/Prosthetic Devices or Brace: No Factors Limiting Gait Function Factors Limiting Gait Function Decreased Activity Tolerance, Decreased Strength,Pain,Poor Balance Comments Gait Comments pls refer to mobility section for details PT-Balance Assessment Sitting Balance and Reactions Static Sitting Balance Ability Normal Dynamic Sitting Balance Ability Good Standing Balance and Reactions Static Standing Balance Ability Fair Dynamic Standing Balance Ability Fair Device Used FWW M5 PT-IP Objective Assessments Start: 12/09/21 13:04 Freq: NEEDED Status: Active Protocol: Document 12/09/21 10:45 AB (Rec: 12/09/21 13:24 AB [email or web address]) Orientation Orientation/Cognition Level of Alertness Alert Orientation Name,Age,Birthday,Month,Date, Year,Day of Week,Place, Situation Language Function Ability No Deficits Noted Safety Awareness Understands Safety Issues Memory Description No Deficits Noted Gross Range of Motion Lower Extremity ROM Assessment Within Functional Limits Strength Lower Extremity Strength Assessment Within Functional Limits Coordination Assessment Gross Coordination Gross Coordination WNL Muscle Tone Muscle Tone WNL Yes M6 PT-IP Treatment Start: 12/09/21 13:04 Freq: NEEDED Status: Active Protocol: Document 12/11/21 09:29 KS (Rec: 12/11/21 11:22 SD [id number]) Physical Therapy Treatment Exercises Exercises Ankle Pumps Education Education Provided Precautions,Weight Bearing Status,Safety Other Treatments Other Treatment Performed Calf stretch M7 PT-IP Assessment and Plan Start: 12/09/21 13:04 Freq: NEEDED Status: Active Protocol: Document 12/11/21 09:29 KS (Rec: 12/11/21 11:22 KS [id number]) PT Summary Assessment and Plan Potential Rehabilitation Potential Good Summary Impairments Pain,ROM,Strength,Balance, Coordination,Sensation,Tone, Cognition,Bed Mobility, Transfers,Gait,Activity Tolerance Progress Towards Goals Slow Progress due to Activity Tolerance,Slow Progress - Other Assessment Summary Pt showed improvement w/ ambulation today and was able to walk ~35 ft w/ FWW and CGA. SBA for bed mobility. Pt will need FWW for home use, however dp not want one dispensed from hospital and pt assures he will acquire one. Educated pt and on how to fit FWW. She will benefit from HHPT to improve balance, gait, and functional mobility. Goals Bed Mobility Goal Independent Transfer Goal Independent Gait Goal Standby Assistance,Front Wheel Walker Gait Distance 50 Other Goals up/down 1 step using FWW min A Days to Meet Goals 5 Frequency of Treatment Frequency Of Treatment Once a Day Treatment Plan Physical Therapy Treatment Plan Bed Mobility Training,Transfer Training,Gait Training, Therapeutic Exercise,Balance Retraining,Post Op Education, Discharge Planning,Hot or Cold Pack,Neuromuscular Re-ed, Coordination Retraining,Manual Therapy Weight Bearing Status Weight Bearing Status Partial Weight Bearing Allowed Weight Bearing Amount (enter % RLE 50% weight bearing or #) (%) Recommendations To Nursing Amount of Assist Needed 1 Person Assist Discharge Recommendations PT Discharge Recommendations Home with Assistance,Home Health Transportation Needs at Discharge Private Vehicle
--- NOTE | 2021-12-11 11:05 | CM.DPC ---
Addendum entered by Anu Resendiz R.N. 12/11/21 13:03: Spoke to Sheila at [facility] and confirmed that she spoke to patient and , and they are aware of any finances owed with co-pay. She received all information. She wants to ensure that ortho can follow. Let her know that this was discussed with PAC today, and will mention to Dr. Simpson as well. Addendum entered by Anu Resendiz R.N. 12/11/21 12:00: Called Mitra at [facility] to see if she has referral. She indicated that she has H&P, labs, demographics, has not yet received face to face and orders. Updated her that patient most likely will go tomorrow, and that [facility] will be doing some teaching before discharge. Let her know that orders, face to face, and DC Summary will be faxed to them upon discharge. Original Note: DCP Cont: kacey Banegas PAC, came by the care management office and indicated that patient would be discharged today. Called [facility] and left a message about referral. Answering service was going to have pharmacist at [facility] call back. Met with patient and spouse, Ariel, who were concerned that everything was not yet set up. Originally was told that patient would have to go to their [place] office for teach back. Let her and spouse know that [facility] normally come here to the hospital to do the teaching. Spoke to Makenzie about situation, unsure if this can be set up today, but will try. Had her go ahead and complete discharge orders. Sheila from [facility] called back, stated, she's not sure if she can have a nurse come over, since they are booked, but will call back. She called back shortly after and indicated, she can't have a nurse here today, but can have someone here tomorrow at 11:30. Updated patient, and called Makenzie back, PAC, and gave her update that patient would need to be here another day, but can discharge tomorrow. She updated Dr. Simpson. Asked Makenzie if they can follow patient, since she is in between providers. Will get provider's name that she will be seeing, stated that she is to be seeing someone next week. Sheila indicated that she did not receive any demographics or information on patient. She is also requesting a PICC insertion site. Went ahead and printed out insertion site, med sheets (let her know that Vanco is now BID), and labs. Included operative report, DC Summary, and face sheet. Updated patient and spouse that discharge should likely occur tomorrow. They are both staying at a local motel, plan to do so in case they need to see ortho Monday. She will be getting [facility]. Will call them tomorrow upon discharge. According to notes, face to face was sent. P: DCP to continue to follow. Plan is to discharge home tomorrow with [facility], and [facility] to do initial teach back. Anu Resendiz RN/School Health Aide
[2021-12-11] MEDS: VANCOMYCIN PEAK 1 REQUEST MISC (12:19)
[2021-12-11 13:20] LABS: Vancomycin Peak 25.7 ug/mL (20-40)
[2021-12-11 13:45] VITALS: BP 144/83; PULSE 69; RESP 17; TEMP 36; O2SAT 97
[2021-12-11 20:00] VITALS: BP 136/78; PULSE 73; RESP 16; TEMP 37.2; O2SAT 97
[2021-12-12] MEDS: VANCOMYCIN 1,000 MG/200 ML PIGGYBACK 200 MG IV ×2 (00:59→09:21)
[2021-12-12 02:34] VITALS: BP 132/73; PULSE 65; RESP 17; TEMP 36.2; O2SAT 97
[2021-12-12 07:25] VITALS: BP 118/72; PULSE 64; RESP 17; TEMP 36.2; O2SAT 98
[2021-12-12] MEDS: SODIUM CHLORIDE 0.9% FLUSH 10 ML IV (09:22)
[2021-12-12] MEDS: ACETAMINOPHEN 325 MG TABLET 975 MG PO (09:32)
[2021-12-12] MEDS: ASPIRIN 325 MG TABLET PO (09:32)
[2021-12-12] MEDS: DOCUSATE 100 MG CAPSULE PO (09:32)
[2021-12-12] MEDS: polyethylene glycoL 3350 17 GM POWD.PACK PO (09:32)
[2021-12-12] MEDS: TRIAMTERENE/HCTZ 37.5/25 CAPSULE 2 CAP PO (09:32)
[2021-12-12] MEDS: BUSPIRONE 5 MG TABLET PO (09:35)
--- NOTE | 2021-12-12 09:48 | PM.DS.1 ---
History of Present Illness History of Present Illness Date Patient Seen: 12/12/21 Time Patient Seen: 09:48 Chief complaint: Irrigation/Debridment of Infected rt foot Narrative: This is an addendum to yesterday's discharge summary. There were difficulties getting her set up for outpatient antibiotics with vancomycin and her discharge was delayed to today to allow this to be straightened out. She has remained medically stable. Discharge Providers Provider Date of admission: 12/08/21 11:09 Discharge Date: 12/12/21 Consults: 12/08/21 18:14 Consult to Discharge Planning Routine Comment: Consult to Physical Therapy Evaluate & Treat Comment: 50% weight-bearing on right lower extremity Physician Instructions: Evaluate and Treat Consult to Respiratory Therapy Evaluate & Treat Comment: Physician Instructions: Evaluate and treat Discharge provider: Cliff Simpson MD Summary Hospital Course Discharge Diagnosis: 1. Right foot postoperative infection 2. Post hemorrhagic anemia Hospital Course: As previously documented plus the addition of a need for an extra day in order to get education for home health antibiotics and to arrange for the home health care to be set up. Status at Discharge Cognitive/behavioral status at discharge: at baseline, oriented Functional status at discharge: uses cane/walker Overall status at discharge: patient is progressing back to baseline Time Spent with Patient Time spent: Less than 30 minutes Exam Vital Signs (past 8 hours): - 12/12/21 02:34 12/12/21 07:25 Temperature 97.2 F L 97.2 F L Pulse Rate 65 64 Respiratory Rate 17 17 Blood Pressure 132/73 118/72 Pulse Oximetry 97 98 Oxygen Delivery Method Room Air Oxygen Flow Rate 0 Narrative Exam Narrative: Right foot wound is dressed with no drainage on the bandage. Light touch is intact in the toes distal to the bandage. She can dorsiflex and plantar flex her toes. Objective Labs Result Diagrams: 12/09/21 05:12 12/11/21 05:02 Labs: Laboratory Results - last 24 hr 12/11/21 11:25 Vancomycin Peak 25.7 PFSH Medical History (Updated 12/09/21 @ 07:25 by Makenzie Robbins PA-C) Anxiety HTN (hypertension) Social History household members: significant other Smoking Status: Former smoker alcohol intake: current Discharge Assessment & Plan Assessment and Plan Assessment: POD# 4 s/p I&D of right foot. Case discussed with Dr Byrd's colleague, who recommended discharge with IV vancomycin until final cultures are returned and MRSA infection is ruled in or out. Plan of Treatment: 1) Discharge with home health and IV vancomycin BID. 2) Our office will call lab [phone] and follow up with on 12/13/2021 for final cultures and will make antibiotic change as appropriate. Anticipate discharge 6 weeks of IV antibiotics with home health for the IV antibiotics.? 3) Continue 50% weight-bearing on the right lower extremity.? Dressing will stay in place and clean unless saturated then may be changed.? Sutures remain in place 4-6 weeks Discharge Plan Discharge Plan Patient Disposition: Home Health Service Transfer to: Home Health, Other and [facility] Discharge orders & Medications Prescriptions: New acetaminophen 325 mg Tablet 975 mg PO TID Qty: 90 0RF oxycodone 5 mg Tablet 5 mg PO Q6H PRN (Reason: pain, severe) Qty: 10 0RF vancomycin-water inject (PEG) 1 gram/200 mL Piggyback 1,000 mg IV Q12H Qty: 2400 0RF Continued buspirone 5 mg tablet 5 mg PO BID 0RF Label Comments: TAKE ONE TABLET BY MOUTH EVERY MORNING AND TWO TABLETS EVERY EVENING aspirin [Marco Aspirin] 325 mg Tablet 325 mg PO DAILY 0RF triamterene-hydrochlorothiazid 75-50 mg tablet See Rx Instructions .ROUTE .COMPLEX 0RF Rx Instructions: take one 75-50mg tablets by mouth once daily in the morning. polyethylene glycol 3350 17 gram/dose powder 17 g PO QAM PRN (Reason: Constipation) 0RF Label Comments: Mix 17 gRAMS OF powder with EIGHT OUNCES of liquid before drinking. Take twice daily until soft bowel movements, then ONCE daily NEEDED. Follow up/Referrals: Shyanne Bingham PA-C [Non-Staff] - Leticia Byrd MD [Physician] - (Follow up with Dr Byrd on 12/22/2021 @ 2:00 pm in [employer] office.) Cinthia Olvera MD [Physician] - Diet/Activity/Treatments Diet: Diet as Tolerated Activity: 50% weight bearing on right leg. Keep dressing clean and dry. Visit Report/Discharge Packet Instructions: DI for Prescription Opioid Use, DI for Incision and Drainage of a Joint, DI for Incision and Drainage, [facility]: Wound Care Stand Alone Forms: Surgery Discharge Quality VTE Deep Vein Thrombosis/Pulmonary Embolism Present on Admission: No
--- NOTE | 2021-12-12 12:37 | PT.IPTN ---
Current Diagnoses Infection following a procedure, other surgical site, initial encounter (12/08/21) Infection and inflammatory reaction due to other internal orthopedic prosthetic devices, implants and grafts, initial encounter (12/08/21) Surgery Performed Operation Date: 12/08/21 16:00 Actual Procedures p I&D foot(Right) - Leticia Byrd MD Physical Therapy Treatment Note M2 PT-IP Current Condition Start: 12/09/21 13:04 Freq: NEEDED Status: Active Protocol: Document 12/09/21 10:45 AB (Rec: 12/09/21 13:24 AB [id number]) Physical Therapy Current Condition Current Condition Evaluation Date 12/09/21 Treatment Diagnosis R foot infxn s/p I&D; difficulty in walking Onset Date 12/08/21 M3 PT-IP Subjective Start: 12/09/21 13:04 Freq: NEEDED Status: Active Protocol: Document 12/12/21 12:30 AW (Rec: 12/12/21 12:37 AW [id number]) Subjective Physical Therapy Visit Type Type Treatment Note Visit Start Time 11:24 Visit Stop Time 11:40 Total Visit Minutes 16 Notes Pts spouse present during treatment. Number of FOUNDRY HAND Visits 0 Physical Therapy Visit Comments Patient Comments Pt is preparing for discharge M4 PT-IP Mobility and Gait Start: 12/09/21 13:04 Freq: NEEDED Status: Active Protocol: Document 12/12/21 12:30 AW (Rec: 12/12/21 12:37 AW [id number]) PT-Transfer Assessment Sit to and From Stand Sit to and from Stand Contact Guard Assistance,1 Person Assistance,Use of Upper Extremities Equipment Transfer Assistive Device Gait Belt,Front Wheeled Walker Orthotic/Prosthetic Devices or Brace: No Comments Mobility Comments Pt sitting up EOB as PT arrived. Her spouse requested further education on use of gait belt. PT gave cues as spouse applied gait belt and assisted pt to stand CGA and walk around the room a total of 40 feet with FWW CGA. Pt returned to sitting EOB. Gait Assessment Gait Gait Assistance Required: Contact Guard Assist Distance (Feet) 40 Able to Maintain Weight Bearing Status Yes During Gait Assistive Devices Assistive Device Gait Belt,Front Wheeled Walker Orthotic/Prosthetic Devices or Brace: No Gait Deviations General Gait Pattern Antalgic,Decreased Stride Length,Decreased Feet Clearance,Flexed Trunk,Step-to Gait Factors Limiting Gait Function Factors Limiting Gait Function Decreased Activity Tolerance, Decreased Strength,Pain,Poor Balance Comments Gait Comments Pt has significant R genu recurvatum and apparent plantar flexion contracture limiting gait. M5 PT-IP Objective Assessments Start: 12/09/21 13:04 Freq: NEEDED Status: Active Protocol: Document 12/09/21 10:45 AB (Rec: 12/09/21 13:24 AB [id number]) Orientation Orientation/Cognition Level of Alertness Alert Orientation Name,Age,Birthday,Month,Date, Year,Day of Week,Place, Situation Language Function Ability No Deficits Noted Safety Awareness Understands Safety Issues Memory Description No Deficits Noted Gross Range of Motion Lower Extremity ROM Assessment Within Functional Limits Strength Lower Extremity Strength Assessment Within Functional Limits Coordination Assessment Gross Coordination Gross Coordination WNL Muscle Tone Muscle Tone WNL Yes M6 PT-IP Treatment Start: 12/09/21 13:04 Freq: NEEDED Status: Active Protocol: Document 12/12/21 12:30 AW (Rec: 12/12/21 12:37 AW [id number]) Physical Therapy Treatment Exercises Exercises Ankle Pumps,Seated Knee Flexion/Extension Education Education Provided Precautions,Weight Bearing Status,Safety Other Treatments Other Treatment Performed calf stretch in supine and seated M7 PT-IP Assessment and Plan Start: 12/09/21 13:04 Freq: NEEDED Status: Active Protocol: Document 12/12/21 12:30 AW (Rec: 12/12/21 12:37 AW [id number]) PT Summary Assessment and Plan Potential Rehabilitation Potential Good Summary Impairments Pain,ROM,Strength,Balance, Coordination,Sensation,Tone, Cognition,Bed Mobility, Transfers,Gait,Activity Tolerance Assessment Summary Short visit today as pt prepares for discharge. Focused treatment on caregiver training for spouse and calf stretches for pt to perform independently at home. Answered all questions and pt felt confident going home today. Spouse has acquired a FWW. Pt also has a wheelchair and knee scooter at home. He will be able to get the pt up/ down the few steps in the wheelchair. Pt may go home with spouse support. Encouraged pt to seek outpatient PT eventually to address ankle and foot mobility. Goals Bed Mobility Goal Independent Transfer Goal Independent Gait Goal Standby Assistance,Front Wheel Walker Gait Distance 50 Other Goals up/down 1 step using FWW min A Days to Meet Goals 5 Frequency of Treatment Frequency Of Treatment Once a Day Treatment Plan Physical Therapy Treatment Plan Bed Mobility Training,Transfer Training,Gait Training, Therapeutic Exercise,Balance Retraining,Post Op Education, Discharge Planning,Hot or Cold Pack,Neuromuscular Re-ed, Coordination Retraining,Manual Therapy Weight Bearing Status Weight Bearing Status Partial Weight Bearing Allowed Weight Bearing Amount (enter % RLE 50% weight bearing or #) (%) Recommendations To Nursing Amount of Assist Needed Standby Assistance Discharge Recommendations PT Discharge Recommendations Home with Assistance,Home Health Transportation Needs at Discharge Private Vehicle
--- NOTE | 2021-12-12 14:18 | PC.NURSE ---
Discharged by provider. Pt verbalized understanding of all written and verbal d/c instructions as well and infusion instructions by home infusion nurse. Pt escorted out via w/c with all personal belongings to private vehicle. Pt left in stable condition.
== END 2021-12-12 14:15 | disposition home health service (06) | DRG 857 ==
PROVIDERS: Admitting Provider Orthopaedic Surgery Foot and Ankle Surgery; Referring Provider Orthopaedic Surgery Foot and Ankle Surgery; Visit Provider Orthopaedic Surgery Foot and Ankle Surgery
PROC: 0KBV0ZZ Excision of Right Foot Muscle, Open Approach (ICD-10-PCS; principal; 2021-12-08 16:00)
DX: T81.42XA Infection following a procedure, deep incisional surgical site, initial encounter (principal); T81.31XA Disruption of external operation (surgical) wound, not elsewhere classified, initial encounter; F41.9 Anxiety disorder, unspecified; I10 Essential (primary) hypertension; Z87.891 Personal history of nicotine dependence; Z20.822 Contact with and (suspected) exposure to COVID-19
CPT/HCPCS: 36415; 36569; 36592; 80053; 80202; 82565; 85025; 85027; 85651; 86140; 87070; 87075; 87176; 87205; 87635; 87801; 94760; 97110; 97116; 97161; 97530; C9803; J0171; J0690; J1100; J2250; J2405; J2704; J3010

== ENCOUNTER → 2025-07-31 09:17 | Outpatient (CLI) | payer OTHER, SELFPAY ==
[2021-12-08 13:51] VITALS: BMI 54.8
== END ==
LOC: PHYS 09:17
PROVIDERS: Referring Provider Orthopaedic Surgery; Visit Provider Orthopaedic Surgery
DX: M25.531 Pain in right wrist (principal)
CPT/HCPCS: 95886; 95909